=== PATIENT | female | born 1955 | race Caucasian/White ===

== ENCOUNTER → 2020-06-08 | Outpatient (CLI) | payer OTHER ==
[~2020-06-08] MED LIST: ALBUTEROL2.5 MG/0.1 INH; ALBUTEROL2.5 MG/31 INH; CRESTOR5 MG PO; ELIQUIS5 M1 PO; FISH OIL-VIT D1 EACH PO; IPRATROPIUM BRO15 ML NASAL; METOPROLOL SUCC25 M1 PO; OXYGEN NASAL; SPIRIVA INH; VITAMIN B12-FO1 EAC1 PO; VITAMIN D21250 MC1 PO; XANAX 0.25 MG0.25 MG PO
[2020-06-08 09:34] LABS: HEMATOCRIT 39.6 % (37.0-47.0); HEMOGLOBIN 13.7 gm/dL (12.0-15.0); MCH 34.2 pg (26.0-34.0); MCHC 34.5 g/dL (28.0-37.0); RBC 3.99 mil/uL (4.20-5.00); RDW 12.9 % (10.5-14.5); WBC 8.1 thou/uL (4.0-11.0)
[2020-06-08 10:01] LABS: ALBUMIN 3.6 g/dL (3.4-5.0); CALCIUM 9.1 mg/dL (8.5-10.1); CREATININE 0.7 mg/dL (0.6-1.0); POTASSIUM 4.2 mmol/L (3.5-5.1); TOTAL BILIRUBIN 0.4 mg/dL (0.2-1.0); TOTAL PROTEIN 7.4 g/dL (6.4-8.2)
== END ==
LOC: CAT 09:13
PROVIDERS: ATTEND Internal Medicine Cardiovascular Disease
DX: I48.91 Unspecified atrial fibrillation (principal); J43.9 Emphysema, unspecified

== ENCOUNTER → 2020-06-08 | Outpatient (CLI) | payer OTHER | LOC: LAB 08:59 | PROVIDERS: ATTEND Internal Medicine Cardiovascular Disease | DX: Z01.812 Encounter for preprocedural laboratory examination (principal); Z20.828 Contact with and (suspected) exposure to other viral communicable diseases ==

== ENCOUNTER 2020-06-12 06:28 | Observation (INO) | payer OTHER ==
[~2020-06-12] VITALS: Ht 172.7 cm; Wt 49.4 kg
[2020-06-12] VITALS (12 sets, daily range): BP systolic 91–126; BP diastolic 48–63
[2020-06-12 07:52] LABS: HEMATOCRIT 41.2 % (37.0-47.0); HEMOGLOBIN 13.9 gm/dL (12.0-15.0); MCH 33.4 pg (26.0-34.0); MCHC 33.8 g/dL (28.0-37.0); MCV 98.8 fL (80.0-100.0); PLATELET COUNT 216 thou/uL (150-400); RBC 4.17 mil/uL (4.20-5.00); RDW 12.7 % (10.5-14.5)
[2020-06-12 07:59] LABS: CREATININE 0.7 mg/dL (0.6-1.0); POTASSIUM 3.7 mmol/L (3.5-5.1)
[2020-06-12 08:02] LABS: APTT 31.2 Seconds (24.5-32.8); INR 1.1; PROTIME 10.9 Seconds (9.3-11.4)
[2020-06-12 08:05] LABS: ALBUMIN 3.5 g/dL (3.4-5.0); TOTAL BILIRUBIN 0.3 mg/dL (0.2-1.0); TOTAL PROTEIN 7.7 g/dL (6.4-8.2)
[2020-06-12] MEDS ORDERED: ALBUTEROL2.5 MG/31 INH (08:47)
[2020-06-12] MEDS ORDERED: ALBUTEROL2.5 MG/0.1 INH (08:47)
[2020-06-12] MEDS ORDERED: XANAX 0.25 MG0.25 MG PO (08:48)
[2020-06-12] MEDS ORDERED: ELIQUIS5 M1 PO (08:49)
[2020-06-12] MEDS ORDERED: VITAMIN D21250 MC1 PO (08:50)
[2020-06-12] MEDS ORDERED: IPRATROPIUM BRO15 ML NASAL (08:54)
[2020-06-12] MEDS ORDERED: METOPROLOL SUCC25 M1 PO (08:55)
[2020-06-12] MEDS ORDERED: FISH OIL-VIT D1 EACH PO (08:56)
[2020-06-12 08:58] LABS: ABSOLUTE NEUTROPHILS 3.3 thou/uL (1.4-8.2)
[2020-06-12] MEDS ORDERED: OXYGEN NASAL ×2 (08:58→09:02)
[2020-06-12] MEDS ORDERED: CRESTOR5 MG PO (08:58)
[2020-06-12 08:59] LABS: ANISOCYTOSIS SLIGHT
[2020-06-12] MEDS ORDERED: SPIRIVA INH (08:59)
[2020-06-12] MEDS ORDERED: VITAMIN B12-FO1 EAC1 PO (09:00)
--- NOTE | 2020-06-12 14:47 | P ---
[facility] [place] [address] PROCEDURE REPORT Name: GINI CALI Room #: 214-P ADM IN M.R.#: [id number] Admission: 06/12/20 Attend Phys: Rancho Haines MD Discharge: Date of : 59 Report #: [id number] THIS REPORT FOR: cc: Chikis Shay MD,Chikis Haines,Rancho Trevino MD ~ CC: Chikis Haines DATE OF SERVICE: 06/12/2020 PREOPERATIVE DIAGNOSIS: Atrial fibrillation. POSTOPERATIVE DIAGNOSIS: Atrial fibrillation. PROCEDURES PERFORMED: 1. Atrial fibrillation ablation, CPT code 36439. 2. 3D mapping, CPT code 41936. 3. Intracardiac echo, CPT code 81315. HISTORY: The patient is a 64-year-old female with a history of COPD and paroxysmal atrial fibrillation, here for AFib ablation. ANESTHESIA: The patient underwent general anesthesia with no anesthesia related complications. DESCRIPTION OF PROCEDURE: The patient underwent informed consent. We discussed the details of the procedure including the risks, which include but not limited to bleeding, infection, vascular damage, cardiac perforation, pneumothorax. She understood these risks and is willing to proceed. The patient was brought to EP laboratory in a fasting and sedated state and prepped and draped in a sterile fashion. Next, I attempted to obtain access to the right femoral vein, which turned out to be quite challenging. She was very thin and had very weak pulses in both groins. I attempted to obtain access to the right femoral vein and placed 2 wires up and thought it was in the vein, but apparently it was in the artery, so I placed an 8 and 7-[place] short sheath in the right femoral artery. I then attempted to obtain access to the left femoral vein and again this was challenging. Therefore, I decided to use ultrasound guidance. Utilizing this, I was able to then obtain two femoral vein accesses on the left side and then spend some more time and finally obtained a single venous access to the right femoral vein. Now ____, I placed an 8-[place] short sheath in the right femoral vein and a 7 and 9-[place] short sheath in the left femoral vein. Wires were then advanced into the heart, which again was somewhat challenging, but I was able to do this using fluoroscopy to the left groin region. Next, using intracardiac ultrasound, there appeared to be a nice thin [facility] [address] [place] [address] PROCEDURE REPORT Name: GINI CALI Room #: 214-P [facility] IN .R.#: [id number] Admission: 06/12/20 Attend Phys: Rancho Haines MD Discharge: Date of : 59 Report #: [id number] interatrial septum and two left and two right pulmonary veins and this was merged with the cardiac CT scan. Next, the patient was systemically heparinized and a transseptal was performed using an SL1 sheath and a Whitman needle. Fortunately, this part of the procedure was straightforward and I was able to exchange the cryo sheath into the left atrium with ease and I placed a Lasso catheter in the left atrium and created a detailed 3D geometry of the left atrium. Next, the cryoballoon was placed in the left atrium and we started isolating the veins. The left superior pulmonary vein underwent a 4-minute, followed by 3-minute freeze. The vein isolated during the first freeze within 120 seconds. I then turned my attention to the left inferior pulmonary vein. This vein underwent a 4-minute and followed by 3-minute freeze. The vein isolated during the first freeze in 34 seconds. I then turned my attention to the right superior pulmonary vein and I placed the Decapolar catheter up at the subclavian and performed phrenic nerve pacing. She did have somewhat of a weak phrenic nerve and therefore, I monitored the phrenic by palpitation and fluoroscopy throughout the ablation. The right superior pulmonary vein underwent a single 3-minute freeze as the vein isolated within 42 seconds. The right inferior pulmonary vein underwent a 150-second freeze as the vein isolated within 24 seconds, but then conduction returned. Therefore, I performed a second freeze of 180 seconds duration and this resulted in isolation within 18 seconds. The veins were re-interrogated and found to be isolated and there were no other inducible arrhythmias noted during the procedure. As such, the procedure was concluded. The patient received systemic protamine and once the ACT was within acceptable range, all catheters and sheaths were pulled and hemostasis was obtained. There were no procedure related complications. CONCLUSIONS: 1. Successful atrial fibrillation ablation with isolation of the pulmonary veins. 2. Very challenging femoral venous anatomy requiring ultrasound guidance to obtain access. 3. No other inducible arrhythmias. <ELECTRONICALLY SIGNED> By: Rancho Haines MD 06/12/20 [id number] Rancho Haines MD /nt
--- NOTE | 2020-06-12 17:15 | NUR ---
PT CARE ASSUMED APPROX 1440. ASSESSMENTS CHARTED. PT DENIES PAIN AND SOA. VSS. ON POST PROCEDURE ORDERED BEDREST. WILL ASSESS GAIT AND REMOVE WELCH AFTER BEDREST COMPLETE. RIGHT GROIN POST PROCEDURE SITE C/D/I. PT DENIES QUESTIONS OR CONCERNS REGARDING POC. DENIED WHEN HE WAS AT BEDSIDE WELL. PT TOLERATING POC. NO DISTRESS NOTED.
[2020-06-13 00:05] VITALS: BP 91/51
[2020-06-13 04:00] VITALS: BP 103/50
--- NOTE | 2020-06-13 04:57 | NUR ---
SLEPT PART OF SHIFT. SEE CATH CHECKS INTERVENTION FOR STATUS. BILATERAL GROINS WITHOUT HEMATOMA OR BLEEDING. RIGHT GROIN WITH MINIMAL DRAINAGE PAST GOING TO BATHROOM, STATING I FORGOT TO HOLD MY HAND ON IT WHEN UP. WORKING ON GOALS AND PLAN OF CARE FOR NOC. TELEMETRY SHOWS SR BUT DID DO SHORT BURST AFIB THIS SHIFT. PROGRESSING SLOWLY TOWARDS DISCHARGE GOALS. CONTINUE TO ASSES CLOSELY.
[2020-06-13 07:50] VITALS: BP 102/43
--- NOTE | 2020-06-13 08:21 | NUR ---
ASSUMED CARE OF PT AT SHIFT CHANGE, CARDIOLOGY GOLD BEATER SAID SHE WAS READY FOR D/C. A&0X4, AMB STEADY, MENTIONED SOME DIZZINESS W/AMB W/HEART DYSRTHYMIA YET NOT SO MUCH NOW. SEE SEPARATE INTERVENTIONS FOR ASSESSMENTS. LET HER KNOW D/C PROCESS AND GAVE HER MY WORK NUMBER SO SHE COULD CHECK BACK AFTER HER SPOUSE CALLS ON ESTIMATED D/C TIME. PT IN [employer] HEARD 216S ACTIVITIES ALL NIGHT SO DIDN'T SLEEP WELL
[2020-06-13 09:42] LABS: MCH 33.4 pg (26.0-34.0); MCHC 33.6 g/dL (28.0-37.0); MCV 99.4 fL (80.0-100.0); RBC 3.42 mil/uL (4.20-5.00); RDW 12.8 % (10.5-14.5); WBC 11.2 thou/uL (4.0-11.0)
[2020-06-13 09:47] LABS: CALCIUM 8.7 mg/dL (8.5-10.1); CREATININE 0.5 mg/dL (0.6-1.0); POTASSIUM 3.6 mmol/L (3.5-5.1)
[2020-06-13 10:14] VITALS: BP 102/49
[2020-06-13 11:24] LABS: HEMOGLOBIN 11.4 gm/dL (12.0-15.0)
== END 2020-06-13 10:45 | disposition home or self-care (01) ==
LOC: CATH 06:28 → 2N 12:28 → CATH 15:17 → 2N 06-13 10:45
PROVIDERS: Internal Medicine Cardiovascular Disease; ADMIT Internal Medicine Cardiovascular Disease; ATTEND Internal Medicine Cardiovascular Disease
DX: I48.91 Unspecified atrial fibrillation (principal); I47.2 Ventricular tachycardia; J44.9 Chronic obstructive pulmonary disease, unspecified; I51.9 Heart disease, unspecified; Z79.82 Long term (current) use of aspirin; Z79.01 Long term (current) use of anticoagulants; Z79.899 Other long term (current) drug therapy; Z99.81 Dependence on supplemental oxygen
CPT/HCPCS: 62110; 62900; 70005

== ENCOUNTER → 2020-07-02 | Outpatient (CLI) | payer OTHER | LOC: SJCVCIMAG 12:31 | PROVIDERS: ATTEND Internal Medicine Cardiovascular Disease | DX: I70.201 Unspecified atherosclerosis of native arteries of extremities, right leg (principal); I70.8 Atherosclerosis of other arteries ==

== ENCOUNTER → 2020-07-06 | Outpatient (CLI) | payer OTHER ==
[~2020-07-06] VITALS: Ht 172.7 cm; Wt 47.7 kg
[2020-07-06 09:45] VITALS: BP 106/48
[2020-07-06 10:15] LABS: HEMATOCRIT 40.4 % (37.0-47.0); HEMOGLOBIN 13.5 gm/dL (12.0-15.0); MCH 33.5 pg (26.0-34.0); MCHC 33.5 g/dL (28.0-37.0); RBC 4.04 mil/uL (4.20-5.00); RDW 13.1 % (10.5-14.5); WBC 7.8 thou/uL (4.0-11.0)
[2020-07-06 11:21] LABS: CALCIUM 8.8 mg/dL (8.5-10.1); CREATININE 0.6 mg/dL (0.6-1.0); POTASSIUM 4.6 mmol/L (3.5-5.1)
== END | disposition home or self-care (01) ==
LOC: CATH 07:45
PROVIDERS: ATTEND Nuclear Medicine Nuclear Cardiology
DX: I70.213 Atherosclerosis of native arteries of extremities with intermittent claudication, bilateral legs (principal); I70.1 Atherosclerosis of renal artery; I10 Essential (primary) hypertension; I48.0 Paroxysmal atrial fibrillation; J44.9 Chronic obstructive pulmonary disease, unspecified; E78.5 Hyperlipidemia, unspecified; K21.9 Gastro-esophageal reflux disease without esophagitis; F17.210 Nicotine dependence, cigarettes, uncomplicated; Z98.890 Other specified postprocedural states; Z79.899 Other long term (current) drug therapy; Z79.01 Long term (current) use of anticoagulants; Z88.0 Allergy status to penicillin; Z88.6 Allergy status to analgesic agent

== ENCOUNTER → 2020-09-11 | Outpatient (CLI) | payer OTHER | LOC: SJCVCIMAG 08:24 | PROVIDERS: ATTEND Internal Medicine Cardiovascular Disease | DX: I65.22 Occlusion and stenosis of left carotid artery (principal); R09.89 Other specified symptoms and signs involving the circulatory and respiratory systems; M79.604 Pain in right leg; I73.9 Peripheral vascular disease, unspecified; F17.200 Nicotine dependence, unspecified, uncomplicated; Z95.828 Presence of other vascular implants and grafts ==

== ENCOUNTER → 2021-10-07 | Outpatient (CLI) | payer OTHER | LOC: SJCVCIMAG 08:09 | PROVIDERS: ATTEND Nuclear Medicine Nuclear Cardiology | DX: I73.9 Peripheral vascular disease, unspecified (principal); M79.605 Pain in left leg; M79.604 Pain in right leg; J44.9 Chronic obstructive pulmonary disease, unspecified; E78.5 Hyperlipidemia, unspecified; I10 Essential (primary) hypertension; F17.290 Nicotine dependence, other tobacco product, uncomplicated; Z82.49 Family history of ischemic heart disease and other diseases of the circulatory system; E78.00 Pure hypercholesterolemia, unspecified; Z88.0 Allergy status to penicillin; Z88.1 Allergy status to other antibiotic agents; Z88.5 Allergy status to narcotic agent; Z88.8 Allergy status to other drugs, medicaments and biological substances; Z79.899 Other long term (current) drug therapy ==